=== PATIENT | male | born 1960 | race Caucasian/White ===

== ENCOUNTER 2022-03-11 08:57 | Inpatient (IN) | payer SELFPAY ==
[2022-03-11 09:27] LABS: Actual Bicarbonate (HCO3v) 19 mEq/L (22-28); Base Excess -3.8 mEq/L (-2.0 to +3.0); Calcium, Ionized (venous) 1.24 mmol/L (1.16-1.32); Chloride (VBG) 100 mmol/L (98-106); Hemoglobin (Hb) 15.1 g/dL (13.1-17.2); Potassium (VBG) 4.03 mmol/L (3.70-5.30); Puncture Site Other Site; RapidComm Collect By LAB; Sodium 133.1 mmol/L (133-146); pH (venous) 7.43 (7.32-7.43)
[2022-03-11 09:33] LABS: %Basophils 0.2 % (0.0-2.0); %Eosinophils 0.2 % (0.0-6.0); %Lymphocytes 6.1 % (18.0-47.0); %Neutrophils 85.3 % (40.0-75.0); Hemoglobin 14.8 g/dL (13.5-17.5); Mean Corpuscular Hemoglobin 31.1 pg (27.0-33.0); Mean Corpuscular Volume 88.9 fl (81.2-95.1); Platelet Count 125 10x3/uL (150-450); RBC Distribution Width 18.9 % (11.5-14.5); Red Blood Cell (RBC) Count 4.76 10x6/uL (4.32-5.72); White Blood Cell (WBC) Count 12.9 10x3/uL (3.5-10.5)
[2022-03-11 09:51] LABS: ALT (SGPT) 10 U/L (8-55); AST (SGOT) 9 U/L (5-34); Albumin 4.1 g/dL (3.4-4.8); Alkaline Phosphatase 80 U/L (40-110); Anion Gap 15 mmol/L (10-20); BUN (Urea Nitrogen) 26 mg/dL (8.4-25.7); Bilirubin, Total 1.3 mg/dL (0.2-1.2); Calc. Creatinine Clearance 0 mL/min (70-130); Calcium 9.9 mg/dL (7.8-10.44); Carbon Dioxide 22 mmol/L (23-31); Chloride 100 mmol/L (98-107); Globulin 2.8 g/dL (2.4-3.5); Glucose 120 mg/dL (80-115); Potassium 4.1 mmol/L (3.5-5.1); Protein, Total 6.9 g/dL (5.8-8.1); Sodium 133 mmol/L (136-145)
[2022-03-11 10:43] LABS: Bilirubin Neg (Negative); Blood, Urine Negative (Negative); Clarity Clear (Clear); Glucose, Urine (Dipstick) >=1000 mg/dL (Negative); Ketone, Urine 15 mg/dL (Negative); Leukocyte Negative (Negative); Nitrite Negative (Negative); Protein, Urine (Dipstick) Negative (Neg-Trace); Urobilinogen Normal mg/dL (Less than 2)
[2022-03-11] MEDS ORDERED: Acetaminophen 325 MG TAB PO PRN (12:25)
[2022-03-11] MEDS: Sodium Chloride 0.9% 1,000 ML IV SCH ×2 (15:00→21:45)
[2022-03-11] MEDS ORDERED: Dextrose 50% Abboject 50 ML SYRINGE SLOW IVP PRN (15:04)
[2022-03-11] MEDS ORDERED: Dextrose 5% in Water 1,000 ML IV PRN (15:04)
[2022-03-11] MEDS: Atorvastatin Calcium 40 MG TAB PO SCH (20:59)
[2022-03-11] MEDS ORDERED: Famotidine 20 MG TAB PO SCH (21:00)
[2022-03-12] MEDS ORDERED: Furosemide 40 MG/4 ML VIAL SLOW IVP SCH (00:45)
[2022-03-12] MEDS ORDERED: Piperacillin/Tazobactam 3.375 GM in Sodium Chloride 0.9% 100 ML IVPB SCH ×2 (02:15→10:00)
[2022-03-12 03:15] LABS: Hemoglobin 15.5 g/dL (13.5-17.5); Mean Corpuscular HGB CONC 34.5 g/dL (32.0-36.0); Mean Corpuscular Hemoglobin 30.9 pg (27.0-33.0); Mean Corpuscular Volume 89.6 fl (81.2-95.1); Mean Platelet Volume 10.8 fl (7.4-10.4); RBC Distribution Width 19.2 % (11.5-14.5); Red Blood Cell (RBC) Count 5.01 10x6/uL (4.32-5.72)
[2022-03-12 03:16] LABS: Platelet Count 122 10x3/uL (150-450)
[2022-03-12 03:28] LABS: Anion Gap 22 mmol/L (10-20); BUN (Urea Nitrogen) 22 mg/dL (8.4-25.7); Calc. Creatinine Clearance 100 mL/min (70-130); Calcium 8.8 mg/dL (7.8-10.44); Carbon Dioxide 16 mmol/L (23-31); Chloride 103 mmol/L (98-107); Glucose 159 mg/dL (80-115); Potassium 3.5 mmol/L (3.5-5.1); Sodium 137 mmol/L (136-145)
[2022-03-12 03:35] LABS: MDiff Complete? YES
[2022-03-12 03:47] LABS: Band 46 % (5-11); Lymphocytes 3 % (21-51); Metamyelocyte 2 % (0-0); Monocytes 2 % (0-10); Neutrophil 45 % (42-75); Reactive Lymphocytes 2 % (0-10)
[2022-03-12 03:48] LABS: Platelet Morphology Comment Appears Decreased; RBC Morphology Normal; Reflex for Review?? YES
[2022-03-12] MEDS ORDERED: Vancomycin 1.5 GRAM/300 ML BAG 1.5 GM in Premix Bag 1 BAG IVPB SCH (06:15)
[2022-03-12] MEDS ORDERED: Dextrose 5 % And 0.9 % NaCl 1,000 ML IV SCH (06:15)
[2022-03-12] MEDS ORDERED: Norepinephrine 8 MG/0.9% NS 250 ML ONE (06:58)
[2022-03-12 07:56] LABS: SARS-CoV-2 NAA Rapid Test Not Detected (NotDetected)
[2022-03-12 07:56] LABS: Actual Bicarbonate (HCO3a) 18.4 mEq/L (22-28); CO2 Tension 41.1 mmHg (35.0-45.0); Carboxyhemoglobin (COHb) 0.6 gm% (0.0-3.0); Hemoglobin (Hb) 14.8 g/dL (14.0-18.0); O2 Tension (PaO2), arterial 76.5 mmHg (> 80.0); Puncture Site LRA; pH, Arterial 7.27 (7.35-7.45)
[2022-03-12 07:59] LABS: ALV-art Gradient 585.125 mmHg (0-20)
[2022-03-12] MEDS ORDERED: Norepinephrine 8 MG/0.9% NS 250 ML IVPB SCH (08:30)
[2022-03-12] MEDS ORDERED: Sodium Chloride 0.9% 1,000 ML IV SCH (08:30)
[2022-03-12 09:15] LABS: #Basophils 0.1 10x3/uL (0.0-0.2); #Monocytes 1.1 10x3/uL (0.0-1.1); #Neutrophils 14.2 10x3/uL (1.5-8.4); %Basophils 0.4 % (0.0-2.0); %Eosinophils 0.2 % (0.0-6.0); %Lymphocytes 2.2 % (18.0-47.0); %Monocytes 6.7 % (0.0-10.0); %Neutrophils 90.1 % (40.0-75.0); Hemoglobin 14.6 g/dL (13.5-17.5); Mean Corpuscular HGB CONC 33.7 g/dL (32.0-36.0); Mean Corpuscular Hemoglobin 31.2 pg (27.0-33.0); Mean Corpuscular Volume 92.5 fl (81.2-95.1); Mean Platelet Volume 10.5 fl (7.4-10.4); Platelet Count 129 10x3/uL (150-450); Red Blood Cell (RBC) Count 4.68 10x6/uL (4.32-5.72); White Blood Cell (WBC) Count 15.8 10x3/uL (3.5-10.5)
[2022-03-12 09:35] LABS: ALT (SGPT) Less than 6 U/L (8-55); AST (SGOT) 9 U/L (5-34); Albumin 3.3 g/dL (3.4-4.8); Alkaline Phosphatase 64 U/L (40-110); Anion Gap 20 mmol/L (10-20); BUN (Urea Nitrogen) 27 mg/dL (8.4-25.7); Bilirubin, Total 1.1 mg/dL (0.2-1.2); CRP (Inflammatory) 13.64 mg/dL (= or < 0.5); Calc. Creatinine Clearance 70 mL/min (70-130); Calcium 8.6 mg/dL (7.8-10.44); Carbon Dioxide 18 mmol/L (23-31); Chloride 102 mmol/L (98-107); Estimated GFR 60; Globulin 2.8 g/dL (2.4-3.5); Glucose 222 mg/dL (80-115); Potassium 3.9 mmol/L (3.5-5.1); Protein, Total 6.1 g/dL (5.8-8.1); Sodium 136 mmol/L (136-145)
[2022-03-12] MEDS: Famotidine/PF 20 mg/2ml Vial SLOW IVP SCH ×2 (09:52→20:39)
[2022-03-12] MEDS: Aspirin 81 mg Enteric Coated Tablet PO SCH (09:53)
[2022-03-12] MEDS: HumaLOG 300 UNITS/3 ML VIAL SC PRN ×2 (09:53→12:15)
[2022-03-12] MEDS: Piperacillin/Tazobactam 3.375 GM in Sodium Chloride 0.9% 100 ML IVPB SCH ×2 (11:21→20:38)
[2022-03-12] MEDS: Sodium Chloride 0.9% 1,000 ML IV SCH ×2 (12:00→18:09)
[2022-03-12 12:18] LABS: Lactic Acid 2.1 mmol/L (0.5-2.2)
[2022-03-12] MEDS: Vancomycin HCl 1 GM in Sodium Chloride 0.9% 250 ML 250 ML IVPB SCH (17:04)
[2022-03-12] MEDS: Atorvastatin Calcium 40 MG TAB PO SCH (20:21)
[2022-03-13] MEDS: Sodium Chloride 0.9% 1,000 ML IV SCH ×2 (01:11→07:52)
[2022-03-13] MEDS: Piperacillin/Tazobactam 3.375 GM in Sodium Chloride 0.9% 100 ML IVPB SCH ×3 (04:56→20:13)
[2022-03-13 05:23] LABS: Hemoglobin 12.3 g/dL (13.5-17.5); Mean Corpuscular HGB CONC 34.3 g/dL (32.0-36.0); Mean Corpuscular Hemoglobin 31.5 pg (27.0-33.0); Mean Corpuscular Volume 91.8 fl (81.2-95.1); Mean Platelet Volume 10.8 fl (7.4-10.4); Platelet Count 80 10x3/uL (150-450); RBC Distribution Width 19.1 % (11.5-14.5); Red Blood Cell (RBC) Count 3.91 10x6/uL (4.32-5.72); White Blood Cell (WBC) Count 9.9 10x3/uL (3.5-10.5)
[2022-03-13 05:26] LABS: Anion Gap 15 mmol/L (10-20); BUN (Urea Nitrogen) 16 mg/dL (8.4-25.7); Calc. Creatinine Clearance 135 mL/min (70-130); Calcium 8.7 mg/dL (7.8-10.44); Carbon Dioxide 20 mmol/L (23-31); Chloride 110 mmol/L (98-107); Estimated GFR 105; Glucose 77 mg/dL (80-115); Potassium 3.8 mmol/L (3.5-5.1); Sodium 141 mmol/L (136-145)
[2022-03-13 05:38] LABS: MDiff Complete? YES
[2022-03-13 05:41] LABS: Band 55 % (5-11); Lymphocytes 2 % (21-51); Metamyelocyte 1 % (0-0); Monocytes 3 % (0-10); Neutrophil 39 % (42-75)
[2022-03-13 05:42] LABS: Platelet Morphology Comment Appears Decreased
[2022-03-13 05:44] LABS: RBC Morphology Normal
[2022-03-13] MEDS: Vancomycin HCl 1 GM in Sodium Chloride 0.9% 250 ML 250 ML IVPB SCH ×2 (06:14→17:16)
[2022-03-13] MEDS: Famotidine/PF 20 mg/2ml Vial SLOW IVP SCH ×2 (08:21→20:13)
[2022-03-13] MEDS: Aspirin 81 mg Enteric Coated Tablet PO SCH (08:21)
[2022-03-13] MEDS: Dextrose 5 %-0.45 % NaCl 1,000 ML IV SCH (10:56)
[2022-03-13 18:00] LABS: Vancomycin, Trough 17.2 ug/mL
[2022-03-13] MEDS: Atorvastatin Calcium 40 MG TAB PO SCH (20:13)
[2022-03-14] MEDS: Dextrose 5 %-0.45 % NaCl 1,000 ML IV SCH ×3 (01:25→23:11)
[2022-03-14] MEDS: Piperacillin/Tazobactam 3.375 GM in Sodium Chloride 0.9% 100 ML IVPB SCH ×3 (04:53→20:14)
[2022-03-14 05:29] LABS: Hemoglobin 11.3 g/dL (13.5-17.5); Mean Corpuscular HGB CONC 33.8 g/dL (32.0-36.0); Mean Corpuscular Hemoglobin 30.9 pg (27.0-33.0); Mean Corpuscular Volume 91.3 fl (81.2-95.1); Mean Platelet Volume 10.5 fl (7.4-10.4); Platelet Count 91 10x3/uL (150-450); RBC Distribution Width 19.2 % (11.5-14.5); Red Blood Cell (RBC) Count 3.66 10x6/uL (4.32-5.72); White Blood Cell (WBC) Count 9.9 10x3/uL (3.5-10.5)
[2022-03-14 05:39] LABS: MDiff Complete? YES
[2022-03-14 05:41] LABS: Vancomycin, Trough 9.3 ug/mL
[2022-03-14 05:43] LABS: Anion Gap 13 mmol/L (10-20); BUN (Urea Nitrogen) 12 mg/dL (8.4-25.7); Band 34 % (5-11); Calc. Creatinine Clearance 131 mL/min (70-130); Calcium 8.7 mg/dL (7.8-10.44); Carbon Dioxide 21 mmol/L (23-31); Chloride 110 mmol/L (98-107); Eosinophils 2 % (0-10); Estimated GFR 106; Glucose 94 mg/dL (80-115); Lymphocytes 9 % (21-51); Monocytes 3 % (0-10); Neutrophil 51 % (42-75); Potassium 3.3 mmol/L (3.5-5.1); Reactive Lymphocytes 1 % (0-10); Sodium 141 mmol/L (136-145)
[2022-03-14 05:44] LABS: Platelet Morphology Comment Appears Decreased
[2022-03-14 05:45] LABS: RBC Morphology Normal
[2022-03-14] MEDS: VANCOMYCIN 1.25 GM/250 ML BAG 1.25 GM in Premix Bag 1 BAG IVPB SCH ×2 (06:00→18:36)
[2022-03-14] MEDS: Aspirin 81 mg Enteric Coated Tablet PO SCH (08:34)
[2022-03-14] MEDS: Famotidine/PF 20 mg/2ml Vial SLOW IVP SCH ×2 (09:21→20:15)
[2022-03-14] MEDS: Atorvastatin Calcium 40 MG TAB PO SCH (19:27)
[2022-03-15] MEDS: Piperacillin/Tazobactam 3.375 GM in Sodium Chloride 0.9% 100 ML IVPB SCH ×3 (04:06→20:34)
[2022-03-15 04:46] LABS: Anion Gap 12 mmol/L (10-20); BUN (Urea Nitrogen) 7 mg/dL (8.4-25.7); Calc. Creatinine Clearance 137 mL/min (70-130); Calcium 8.5 mg/dL (7.8-10.44); Carbon Dioxide 23 mmol/L (23-31); Chloride 109 mmol/L (98-107); Estimated GFR 108; Glucose 93 mg/dL (80-115); Potassium 3.1 mmol/L (3.5-5.1); Sodium 141 mmol/L (136-145)
[2022-03-15] MEDS: VANCOMYCIN 1.25 GM/250 ML BAG 1.25 GM in Premix Bag 1 BAG IVPB SCH ×2 (05:51→18:15)
[2022-03-15 05:59] LABS: Hemoglobin 11.4 g/dL (13.5-17.5); Mean Corpuscular HGB CONC 33.7 g/dL (32.0-36.0); Mean Corpuscular Hemoglobin 30.7 pg (27.0-33.0); Mean Corpuscular Volume 91.1 fl (81.2-95.1); Mean Platelet Volume 10.9 fl (7.4-10.4); RBC Distribution Width 19.2 % (11.5-14.5); Red Blood Cell (RBC) Count 3.71 10x6/uL (4.32-5.72); White Blood Cell (WBC) Count 9.2 10x3/uL (3.5-10.5)
[2022-03-15 06:03] LABS: MDiff Complete? YES; Platelet Count 92 10x3/uL (150-450)
[2022-03-15 06:12] LABS: Platelet Morphology Comment Appears Decreased; RBC Morphology Normal
[2022-03-15 06:15] LABS: Eosinophils 2 % (0-10); Lymphocytes 13 % (21-51); Monocytes 8 % (0-10); Neutrophil 77 % (42-75)
[2022-03-15] MEDS: Famotidine/PF 20 mg/2ml Vial SLOW IVP SCH ×2 (08:08→20:34)
[2022-03-15] MEDS: Potassium Chloride 20 MEQ in Premix Bag 1 BAG IVPB SCH ×2 (08:08→09:54)
[2022-03-15] MEDS: Aspirin 81 mg Enteric Coated Tablet PO SCH (08:09)
[2022-03-15] MEDS: Dextrose 5 %-0.45 % NaCl 1,000 ML IV SCH (11:48)
[2022-03-15 18:02] LABS: Vancomycin, Trough 11.2 ug/mL
[2022-03-15] MEDS: hydrALAZINE 20 MG/ML VIAL SLOW IVP PRN (18:23)
[2022-03-15] MEDS: Atorvastatin Calcium 40 MG TAB PO SCH (20:34)
[2022-03-16] MEDS ORDERED: Vancomycin 1.5 GRAM/300 ML BAG ONE (04:19)
[2022-03-16] MEDS: Piperacillin/Tazobactam 3.375 GM in Sodium Chloride 0.9% 100 ML IVPB SCH ×3 (04:21→21:00)
[2022-03-16] MEDS: Dextrose 5 %-0.45 % NaCl 1,000 ML IV SCH (04:22)
[2022-03-16 05:30] LABS: Hemoglobin 12.9 g/dL (13.5-17.5); Mean Corpuscular HGB CONC 33.2 g/dL (32.0-36.0); Mean Corpuscular Hemoglobin 30.3 pg (27.0-33.0); Mean Corpuscular Volume 91.3 fl (81.2-95.1); Mean Platelet Volume 10.3 fl (7.4-10.4); Platelet Count 96 10x3/uL (150-450); RBC Distribution Width 19.4 % (11.5-14.5); Red Blood Cell (RBC) Count 4.26 10x6/uL (4.32-5.72); White Blood Cell (WBC) Count 8.4 10x3/uL (3.5-10.5)
[2022-03-16] MEDS: hydrALAZINE 20 MG/ML VIAL SLOW IVP PRN ×2 (05:34→17:36)
[2022-03-16] MEDS: Vancomycin 1.5 GRAM/300 ML BAG 1.5 GM in Premix Bag 1 BAG IVPB SCH ×2 (05:36→17:35)
[2022-03-16 05:38] LABS: Anion Gap 16 mmol/L (10-20); BUN (Urea Nitrogen) 6 mg/dL (8.4-25.7); Calc. Creatinine Clearance 151 mL/min (70-130); Calcium 8.7 mg/dL (7.8-10.44); Carbon Dioxide 20 mmol/L (23-31); Chloride 109 mmol/L (98-107); Estimated GFR 111; Glucose 73 mg/dL (80-115); Potassium 3.2 mmol/L (3.5-5.1); Sodium 142 mmol/L (136-145)
[2022-03-16 05:42] LABS: MDiff Complete? YES
[2022-03-16 06:06] LABS: Band 14 % (5-11); Eosinophils 2 % (0-10); Lymphocytes 12 % (21-51); Monocytes 10 % (0-10); Neutrophil 61 % (42-75)
[2022-03-16 06:08] LABS: Platelet Morphology Comment Appears Decreased; RBC Morphology Normal
[2022-03-16] MEDS: Famotidine/PF 20 mg/2ml Vial SLOW IVP SCH (08:53)
[2022-03-16] MEDS: Aspirin 81 mg Enteric Coated Tablet PO SCH ×2 (08:53→09:27)
[2022-03-16] MEDS: Lisinopril 10 MG TAB PO SCH (08:56)
[2022-03-16] MEDS ORDERED: Aspirin Chewable 81 MG TAB PO SCH (09:30)
[2022-03-16] MEDS ORDERED: Potassium Bicarbonate/Cit Ac 20 MEQ TAB PO SCH (16:00)
[2022-03-16] MEDS ORDERED: Potassium Chloride 20 MEQ TAB PO SCH (16:00)
[2022-03-16] MEDS: Atorvastatin Calcium 40 MG TAB PO SCH (21:45)
[2022-03-17] MEDS: Piperacillin/Tazobactam 3.375 GM in Sodium Chloride 0.9% 100 ML IVPB SCH ×3 (04:14→20:28)
[2022-03-17 05:27] LABS: #Basophils 0.1 10x3/uL (0.0-0.2); #Eosinphils 0.1 10x3/uL (0.0-0.5); #Monocytes 1.1 10x3/uL (0.0-1.1); #Neutrophils 8.5 10x3/uL (1.5-8.4); %Basophils 0.7 % (0.0-2.0); %Eosinophils 1.3 % (0.0-6.0); %Lymphocytes 9.2 % (18.0-47.0); %Monocytes 9.8 % (0.0-10.0); Hemoglobin 12.4 g/dL (13.5-17.5); Mean Corpuscular HGB CONC 33.7 g/dL (32.0-36.0); Mean Corpuscular Hemoglobin 30.7 pg (27.0-33.0); Mean Corpuscular Volume 91.1 fl (81.2-95.1); Mean Platelet Volume 10.8 fl (7.4-10.4); Platelet Count 113 10x3/uL (150-450); RBC Distribution Width 19.1 % (11.5-14.5); Red Blood Cell (RBC) Count 4.04 10x6/uL (4.32-5.72); White Blood Cell (WBC) Count 11.1 10x3/uL (3.5-10.5)
[2022-03-17 05:33] LABS: ALT (SGPT) 9 U/L (8-55); AST (SGOT) 13 U/L (5-34); Albumin 2.8 g/dL (3.4-4.8); Alkaline Phosphatase 55 U/L (40-110); Anion Gap 16 mmol/L (10-20); BUN (Urea Nitrogen) 6 mg/dL (8.4-25.7); Bilirubin, Direct 0.4 mg/dL (0.1-0.3); Bilirubin, Total 0.9 mg/dL (0.2-1.2); Calc. Creatinine Clearance 146 mL/min (70-130); Calcium 8.6 mg/dL (7.8-10.44); Carbon Dioxide 20 mmol/L (23-31); Cardiac Risk 6.4 (Less than 4.5); Chloride 109 mmol/L (98-107); Cholesterol 116 mg/dl (< 200 Desired); Estimated GFR 110; Glucose 85 mg/dL (80-115); HDL Cholesterol 18 mg/dL (>60 Neg Risk); LDL Cholesterol, Calculated 73 mg/dL; Magnesium 1.8 mg/dL (1.6-2.6); Potassium 3.1 mmol/L (3.5-5.1); Protein, Total 5.6 g/dL (5.8-8.1); Sodium 142 mmol/L (136-145); Triglycerides 125 mg/dL (Less than 150)
[2022-03-17] MEDS ORDERED: Vancomycin 1.5 GRAM/300 ML BAG ONE (05:59)
[2022-03-17] MEDS: Dextrose 5 %-0.45 % NaCl 1,000 ML IV SCH (06:10)
[2022-03-17] MEDS: hydrALAZINE 20 MG/ML VIAL SLOW IVP PRN (06:11)
[2022-03-17] MEDS: Vancomycin 1.5 GRAM/300 ML BAG 1.5 GM in Premix Bag 1 BAG IVPB SCH ×2 (06:12→18:05)
[2022-03-17] MEDS: Enoxaparin Sodium 40 MG/0.4 ML SYRINGE SC SCH (09:56)
[2022-03-17] MEDS: Aspirin Chewable 81 MG TAB PO SCH (09:57)
[2022-03-17] MEDS: Lisinopril 10 MG TAB PO SCH (09:57)
[2022-03-17] MEDS: Potassium Chloride 20 MEQ TAB PO SCH ×2 (09:57→18:05)
[2022-03-17 12:20] LABS: Hemoglobin A1c 5.3 % (4.0-6.0)
[2022-03-17 17:49] LABS: Vancomycin, Trough 12.6 ug/mL
[2022-03-17] MEDS ORDERED: Vancomycin HCl 1 GM in Sodium Chloride 0.9% 250 ML 250 ML IVPB SCH (18:00)
[2022-03-17] MEDS: Atorvastatin Calcium 40 MG TAB PO SCH (20:27)
[2022-03-18] MEDS: hydrALAZINE 20 MG/ML VIAL SLOW IVP PRN ×2 (01:06→23:48)
[2022-03-18] MEDS: Dextrose 5 %-0.45 % NaCl 1,000 ML IV SCH ×2 (01:14→15:50)
[2022-03-18 04:22] LABS: #Basophils 0.1 10x3/uL (0.0-0.2); #Eosinphils 0.2 10x3/uL (0.0-0.5); #Monocytes 1.1 10x3/uL (0.0-1.1); #Neutrophils 6.7 10x3/uL (1.5-8.4); %Basophils 0.8 % (0.0-2.0); %Eosinophils 1.7 % (0.0-6.0); %Lymphocytes 13.7 % (18.0-47.0); %Monocytes 11.2 % (0.0-10.0); %Neutrophils 69.1 % (40.0-75.0); Hemoglobin 12.1 g/dL (13.5-17.5); Mean Corpuscular Hemoglobin 30.6 pg (27.0-33.0); Mean Corpuscular Volume 92.9 fl (81.2-95.1); Mean Platelet Volume 10.4 fl (7.4-10.4); Platelet Count 147 10x3/uL (150-450); RBC Distribution Width 19.4 % (11.5-14.5); Red Blood Cell (RBC) Count 3.95 10x6/uL (4.32-5.72); White Blood Cell (WBC) Count 9.7 10x3/uL (3.5-10.5)
[2022-03-18] MEDS: Piperacillin/Tazobactam 3.375 GM in Sodium Chloride 0.9% 100 ML IVPB SCH ×3 (04:28→21:05)
[2022-03-18 04:47] LABS: Anion Gap 14 mmol/L (10-20); BUN (Urea Nitrogen) 8 mg/dL (8.4-25.7); Calc. Creatinine Clearance 144 mL/min (70-130); Calcium 8.6 mg/dL (7.8-10.44); Carbon Dioxide 23 mmol/L (23-31); Chloride 110 mmol/L (98-107); Estimated GFR 109; Glucose 96 mg/dL (80-115); Magnesium 1.9 mg/dL (1.6-2.6); Potassium 3.5 mmol/L (3.5-5.1); Sodium 143 mmol/L (136-145)
[2022-03-18] MEDS ORDERED: Potassium Chloride 20 MEQ TAB PO SCH (08:00)
[2022-03-18] MEDS: Vancomycin 1.5 GRAM/300 ML BAG 1.5 GM in Premix Bag 1 BAG IVPB SCH ×2 (08:34→17:20)
[2022-03-18] MEDS: Lisinopril 10 MG TAB PO SCH (08:35)
[2022-03-18] MEDS: Enoxaparin Sodium 40 MG/0.4 ML SYRINGE SC SCH (08:35)
[2022-03-18] MEDS: Aspirin Chewable 81 MG TAB PO SCH (08:35)
[2022-03-18] MEDS: Atorvastatin Calcium 40 MG TAB PO SCH (21:09)
[2022-03-19 03:26] LABS: #Basophils 0.1 10x3/uL (0.0-0.2); #Eosinphils 0.2 10x3/uL (0.0-0.5); #Monocytes 0.8 10x3/uL (0.0-1.1); #Neutrophils 5.8 10x3/uL (1.5-8.4); %Basophils 0.8 % (0.0-2.0); %Eosinophils 2.4 % (0.0-6.0); %Lymphocytes 16.1 % (18.0-47.0); %Monocytes 9.8 % (0.0-10.0); %Neutrophils 67.6 % (40.0-75.0); Hemoglobin 12.5 g/dL (13.5-17.5); Mean Corpuscular HGB CONC 33.3 g/dL (32.0-36.0); Mean Corpuscular Hemoglobin 30.6 pg (27.0-33.0); Mean Corpuscular Volume 91.7 fl (81.2-95.1); Mean Platelet Volume 9.8 fl (7.4-10.4); Platelet Count 164 10x3/uL (150-450); RBC Distribution Width 19.3 % (11.5-14.5); Red Blood Cell (RBC) Count 4.09 10x6/uL (4.32-5.72); White Blood Cell (WBC) Count 8.5 10x3/uL (3.5-10.5)
[2022-03-19] MEDS: Piperacillin/Tazobactam 3.375 GM in Sodium Chloride 0.9% 100 ML IVPB SCH ×2 (04:15→14:40)
[2022-03-19] MEDS ORDERED: Piperacillin/Tazobactam 3.375 GM VIAL ONE (04:16)
[2022-03-19 04:17] LABS: Anion Gap 15 mmol/L (10-20); BUN (Urea Nitrogen) 7 mg/dL (8.4-25.7); Calc. Creatinine Clearance 149 mL/min (70-130); Calcium 8.9 mg/dL (7.8-10.44); Carbon Dioxide 23 mmol/L (23-31); Chloride 107 mmol/L (98-107); Estimated GFR 110; Glucose 110 mg/dL (80-115); Magnesium 1.7 mg/dL (1.6-2.6); Potassium 3.5 mmol/L (3.5-5.1); Sodium 141 mmol/L (136-145)
[2022-03-19] MEDS: Vancomycin 1.5 GRAM/300 ML BAG 1.5 GM in Premix Bag 1 BAG IVPB SCH (05:34)
[2022-03-19] MEDS: Dextrose 5 %-0.45 % NaCl 1,000 ML IV SCH (05:34)
[2022-03-19 05:49] LABS: Vancomycin, Trough 13.4 ug/mL
[2022-03-19] MEDS ORDERED: Magnesium 2 GM/50 ML(in water) 4 GM in Premix Bag 1 BAG IVPB SCH ×3 (06:30→16:00)
[2022-03-19] MEDS ORDERED: Potassium Chloride 20 MEQ TAB PO SCH (06:30)
[2022-03-19] MEDS ORDERED: Iopamidol 370 76% 100 ML VIAL ONE (08:00)
[2022-03-19] MEDS: Lisinopril 10 MG TAB PO SCH (09:28)
[2022-03-19] MEDS: Amlodipine 5 MG TAB PO SCH (09:29)
[2022-03-19] MEDS: Enoxaparin Sodium 40 MG/0.4 ML SYRINGE SC SCH (09:29)
[2022-03-19] MEDS: Aspirin Chewable 81 MG TAB PO SCH (09:29)
[2022-03-19] MEDS ORDERED: Furosemide 40 MG/4 ML VIAL SLOW IVP SCH (17:30)
[2022-03-19] MEDS ORDERED: Enoxaparin Sodium 80 MG/0.8 ML SYRINGE SC SCH (18:00)
[2022-03-19] MEDS: Enoxaparin Sodium 80 MG/0.8 ML SYRINGE SC SCH (18:02)
[2022-03-19] MEDS: Atorvastatin Calcium 40 MG TAB PO SCH (21:46)
[2022-03-19] MEDS ORDERED: Famotidine/PF 20 mg/2ml Vial SLOW IVP SCH (23:00)
[2022-03-20 04:41] LABS: #Basophils 0.1 10x3/uL (0.0-0.2); #Eosinphils 0.2 10x3/uL (0.0-0.5); #Monocytes 0.6 10x3/uL (0.0-1.1); %Eosinophils 1.8 % (0.0-6.0); %Lymphocytes 14.2 % (18.0-47.0); %Monocytes 7.9 % (0.0-10.0); %Neutrophils 73.1 % (40.0-75.0); Hemoglobin 12.7 g/dL (13.5-17.5); Mean Corpuscular HGB CONC 32.6 g/dL (32.0-36.0); Mean Corpuscular Hemoglobin 30.6 pg (27.0-33.0); Mean Corpuscular Volume 93.7 fl (81.2-95.1); Mean Platelet Volume 10.1 fl (7.4-10.4); Platelet Count 194 10x3/uL (150-450); Red Blood Cell (RBC) Count 4.15 10x6/uL (4.32-5.72); White Blood Cell (WBC) Count 8.2 10x3/uL (3.5-10.5)
[2022-03-20 04:47] LABS: PTT 29.1 sec (22.0-33.0); Prothrombin Time 10.5 sec (9.5-12.1)
[2022-03-20 04:52] LABS: Anion Gap 13 mmol/L (10-20); BUN (Urea Nitrogen) 7 mg/dL (8.4-25.7); Calc. Creatinine Clearance 149 mL/min (70-130); Calcium 8.6 mg/dL (7.8-10.44); Carbon Dioxide 29 mmol/L (23-31); Chloride 105 mmol/L (98-107); Estimated GFR 110; Glucose 114 mg/dL (80-115); Magnesium 2.1 mg/dL (1.6-2.6); Potassium 3.3 mmol/L (3.5-5.1); Sodium 144 mmol/L (136-145)
[2022-03-20] MEDS ORDERED: Furosemide 40 MG/4 ML VIAL SLOW IVP SCH ×2 (07:00→14:00)
[2022-03-20] MEDS: Potassium Chloride 20 MEQ TAB PO SCH ×2 (08:18→17:29)
[2022-03-20] MEDS: Aspirin Chewable 81 MG TAB PO SCH (08:18)
[2022-03-20] MEDS: Lisinopril 10 MG TAB PO SCH (08:18)
[2022-03-20] MEDS: Enoxaparin Sodium 80 MG/0.8 ML SYRINGE SC SCH ×2 (08:18→21:20)
[2022-03-20] MEDS: Amlodipine 5 MG TAB PO SCH (08:18)
[2022-03-20] MEDS: Pantoprazole 40 MG VIAL IVP SCH (08:19)
[2022-03-20] MEDS ORDERED: Tamsulosin HCl 0.4 MG CAP PO SCH (13:00)
[2022-03-20] MEDS: HumaLOG 300 UNITS/3 ML VIAL SC PRN ×2 (13:42→17:29)
[2022-03-20] MEDS: Atorvastatin Calcium 40 MG TAB PO SCH (21:19)
[2022-03-20] MEDS: Polyethylene Glycol 3350 17 GM Packet PO SCH (21:19)
[2022-03-20] MEDS: Senokot S 8.6-50 MG TAB PO SCH (21:19)
[2022-03-21 04:22] LABS: #Basophils 0.1 10x3/uL (0.0-0.2); #Eosinphils 0.1 10x3/uL (0.0-0.5); #Monocytes 0.6 10x3/uL (0.0-1.1); #Neutrophils 5.2 10x3/uL (1.5-8.4); %Basophils 0.7 % (0.0-2.0); %Eosinophils 1.8 % (0.0-6.0); %Monocytes 7.3 % (0.0-10.0); %Neutrophils 67.8 % (40.0-75.0); Anion Gap 12 mmol/L (10-20); BUN (Urea Nitrogen) 7 mg/dL (8.4-25.7); Calc. Creatinine Clearance 146 mL/min (70-130); Calcium 8.9 mg/dL (7.8-10.44); Carbon Dioxide 30 mmol/L (23-31); Chloride 103 mmol/L (98-107); Estimated GFR 110; Glucose 120 mg/dL (80-115); Hemoglobin 12.2 g/dL (13.5-17.5); Mean Corpuscular HGB CONC 32.2 g/dL (32.0-36.0); Mean Corpuscular Hemoglobin 30.4 pg (27.0-33.0); Mean Corpuscular Volume 94.5 fl (81.2-95.1); Mean Platelet Volume 10.3 fl (7.4-10.4); Platelet Count 226 10x3/uL (150-450); Potassium 3.4 mmol/L (3.5-5.1); Red Blood Cell (RBC) Count 4.01 10x6/uL (4.32-5.72); Sodium 142 mmol/L (136-145); White Blood Cell (WBC) Count 7.6 10x3/uL (3.5-10.5)
[2022-03-21] MEDS ORDERED: Enoxaparin Sodium 80 MG/0.8 ML SYRINGE ONE (07:55)
[2022-03-21] MEDS: Amlodipine 5 MG TAB PO SCH (08:27)
[2022-03-21] MEDS: Potassium Chloride 20 MEQ TAB PO SCH ×2 (08:27→17:14)
[2022-03-21] MEDS: Tamsulosin HCl 0.4 MG CAP PO SCH (08:27)
[2022-03-21] MEDS: Polyethylene Glycol 3350 17 GM Packet PO SCH ×2 (08:27→20:29)
[2022-03-21] MEDS: Senokot S 8.6-50 MG TAB PO SCH ×2 (08:27→20:29)
[2022-03-21] MEDS: Lisinopril 10 MG TAB PO SCH (08:27)
[2022-03-21] MEDS: Aspirin Chewable 81 MG TAB PO SCH (08:27)
[2022-03-21] MEDS: Pantoprazole 40 MG VIAL IVP SCH (08:27)
[2022-03-21] MEDS: Enoxaparin Sodium 80 MG/0.8 ML SYRINGE SC SCH ×2 (08:27→20:29)
[2022-03-21] MEDS: Warfarin Sodium 2.5 MG TAB PO SCH (17:14)
[2022-03-21] MEDS: Atorvastatin Calcium 40 MG TAB PO SCH (20:28)
[2022-03-21] MEDS ORDERED: Magnesium 2 GM/50 ML(in water) 2 GM in Premix Bag 1 BAG IVPB SCH (21:00)
[2022-03-22 05:02] LABS: ALT (SGPT) 121 U/L (8-55); AST (SGOT) 136 U/L (5-34); Albumin 2.9 g/dL (3.4-4.8); Alkaline Phosphatase 85 U/L (40-110); Anion Gap 13 mmol/L (10-20); BUN (Urea Nitrogen) 9 mg/dL (8.4-25.7); Bilirubin, Direct 0.2 mg/dL (0.1-0.3); Bilirubin, Total 0.4 mg/dL (0.2-1.2); Calc. Creatinine Clearance 146 mL/min (70-130); Calcium 8.8 mg/dL (7.8-10.44); Carbon Dioxide 30 mmol/L (23-31); Chloride 104 mmol/L (98-107); Estimated GFR 109; Glucose 118 mg/dL (80-115); Magnesium 2.2 mg/dL (1.6-2.6); Potassium 4.1 mmol/L (3.5-5.1); Protein, Total 6.1 g/dL (5.8-8.1); Sodium 143 mmol/L (136-145)
[2022-03-22 05:22] LABS: #Basophils 0.1 10x3/uL (0.0-0.2); #Eosinphils 0.1 10x3/uL (0.0-0.5); #Monocytes 0.5 10x3/uL (0.0-1.1); #Neutrophils 5.8 10x3/uL (1.5-8.4); %Basophils 0.8 % (0.0-2.0); %Eosinophils 1.2 % (0.0-6.0); %Lymphocytes 16.2 % (18.0-47.0); Hemoglobin 12.2 g/dL (13.5-17.5); Mean Corpuscular HGB CONC 32.5 g/dL (32.0-36.0); Mean Corpuscular Hemoglobin 30.7 pg (27.0-33.0); Mean Corpuscular Volume 94.2 fl (81.2-95.1); Mean Platelet Volume 10.1 fl (7.4-10.4); Platelet Count 251 10x3/uL (150-450); RBC Distribution Width 18.8 % (11.5-14.5); Red Blood Cell (RBC) Count 3.98 10x6/uL (4.32-5.72); White Blood Cell (WBC) Count 7.7 10x3/uL (3.5-10.5)
[2022-03-22 05:29] LABS: INR-International Normal Ratio 0.9; PTT 30.3 sec (22.0-33.0); Prothrombin Time 10.3 sec (9.5-12.1)
[2022-03-22] MEDS ORDERED: Enoxaparin Sodium 80 MG/0.8 ML SYRINGE ONE (09:51)
[2022-03-22] MEDS: Polyethylene Glycol 3350 17 GM Packet PO SCH ×2 (09:54→21:08)
[2022-03-22] MEDS: Senokot S 8.6-50 MG TAB PO SCH ×2 (09:54→21:08)
[2022-03-22] MEDS: Enoxaparin Sodium 80 MG/0.8 ML SYRINGE SC SCH ×2 (09:54→21:07)
[2022-03-22] MEDS: Tamsulosin HCl 0.4 MG CAP PO SCH (09:54)
[2022-03-22] MEDS: Pantoprazole 40 MG VIAL IVP SCH (09:55)
[2022-03-22] MEDS: Aspirin Chewable 81 MG TAB PO SCH (09:56)
[2022-03-22] MEDS: Amlodipine 5 MG TAB PO SCH (09:57)
[2022-03-22] MEDS: Lisinopril 10 MG TAB PO SCH (09:57)
[2022-03-22] MEDS: Warfarin Sodium 2.5 MG TAB PO SCH (17:32)
[2022-03-22] MEDS: HumaLOG 300 UNITS/3 ML VIAL SC PRN (17:33)
[2022-03-22] MEDS: Atorvastatin Calcium 40 MG TAB PO SCH (21:07)
[2022-03-23 04:43] LABS: ALT (SGPT) 144 U/L (8-55); AST (SGOT) 118 U/L (5-34); Albumin 2.9 g/dL (3.4-4.8); Alkaline Phosphatase 88 U/L (40-110); Anion Gap 13 mmol/L (10-20); BUN (Urea Nitrogen) 10 mg/dL (8.4-25.7); Bilirubin, Total 0.5 mg/dL (0.2-1.2); Calc. Creatinine Clearance 151 mL/min (70-130); Calcium 8.9 mg/dL (7.8-10.44); Carbon Dioxide 29 mmol/L (23-31); Chloride 104 mmol/L (98-107); Estimated GFR 110; Glucose 123 mg/dL (80-115); Magnesium 1.9 mg/dL (1.6-2.6); Potassium 3.9 mmol/L (3.5-5.1); Protein, Total 5.9 g/dL (5.8-8.1); Sodium 142 mmol/L (136-145)
[2022-03-23 04:52] LABS: PTT 30.1 sec (22.0-33.0); Prothrombin Time 10.4 sec (9.5-12.1)
[2022-03-23 04:53] LABS: #Basophils 0.1 10x3/uL (0.0-0.2); #Eosinphils 0.1 10x3/uL (0.0-0.5); #Monocytes 0.5 10x3/uL (0.0-1.1); #Neutrophils 5.8 10x3/uL (1.5-8.4); %Basophils 0.6 % (0.0-2.0); %Eosinophils 0.9 % (0.0-6.0); %Lymphocytes 17.8 % (18.0-47.0); %Monocytes 5.9 % (0.0-10.0); %Neutrophils 74.3 % (40.0-75.0); Hemoglobin 11.6 g/dL (13.5-17.5); Mean Corpuscular Hemoglobin 29.9 pg (27.0-33.0); Mean Corpuscular Volume 93.6 fl (81.2-95.1); Platelet Count 281 10x3/uL (150-450); RBC Distribution Width 18.7 % (11.5-14.5); Red Blood Cell (RBC) Count 3.88 10x6/uL (4.32-5.72); White Blood Cell (WBC) Count 7.8 10x3/uL (3.5-10.5)
[2022-03-23] MEDS ORDERED: Enoxaparin Sodium 80 MG/0.8 ML SYRINGE ONE (09:52)
[2022-03-23] MEDS: Pantoprazole 40 MG VIAL IVP SCH (10:47)
[2022-03-23] MEDS: Lisinopril 10 MG TAB PO SCH (10:50)
[2022-03-23] MEDS: Polyethylene Glycol 3350 17 GM Packet PO SCH ×2 (10:50→20:50)
[2022-03-23] MEDS: Amlodipine 5 MG TAB PO SCH (10:50)
[2022-03-23] MEDS: Aspirin Chewable 81 MG TAB PO SCH (10:50)
[2022-03-23] MEDS: Enoxaparin Sodium 80 MG/0.8 ML SYRINGE SC SCH ×2 (10:50→20:39)
[2022-03-23] MEDS: Senokot S 8.6-50 MG TAB PO SCH ×2 (10:51→20:50)
[2022-03-23] MEDS: Tamsulosin HCl 0.4 MG CAP PO SCH (10:51)
[2022-03-23] MEDS: Ondansetron ODT 4 MG TAB PO PRN (13:35)
[2022-03-23] MEDS: Warfarin Sodium 5 MG TAB PO SCH (16:49)
[2022-03-23] MEDS: HumaLOG 300 UNITS/3 ML VIAL SC PRN ×2 (16:56→20:38)
[2022-03-23] MEDS: Atorvastatin Calcium 40 MG TAB PO SCH (20:40)
[2022-03-24 04:44] LABS: PTT 30.9 sec (22.0-33.0); Prothrombin Time 10.8 sec (9.5-12.1)
[2022-03-24 04:45] LABS: ALT (SGPT) 157 U/L (8-55); AST (SGOT) 113 U/L (5-34); Albumin 2.9 g/dL (3.4-4.8); Alkaline Phosphatase 94 U/L (40-110); Anion Gap 12 mmol/L (10-20); BUN (Urea Nitrogen) 12 mg/dL (8.4-25.7); Bilirubin, Total 0.4 mg/dL (0.2-1.2); Calc. Creatinine Clearance 143 mL/min (70-130); Carbon Dioxide 30 mmol/L (23-31); Chloride 104 mmol/L (98-107); Estimated GFR 108; Globulin 3.4 g/dL (2.4-3.5); Glucose 109 mg/dL (80-115); Potassium 4.2 mmol/L (3.5-5.1); Protein, Total 6.3 g/dL (5.8-8.1); Sodium 142 mmol/L (136-145)
[2022-03-24] MEDS: Amlodipine 5 MG TAB PO SCH (08:54)
[2022-03-24] MEDS: Enoxaparin Sodium 80 MG/0.8 ML SYRINGE SC SCH ×2 (08:54→21:13)
[2022-03-24] MEDS: Senokot S 8.6-50 MG TAB PO SCH ×2 (08:54→21:13)
[2022-03-24] MEDS: Lisinopril 10 MG TAB PO SCH (08:54)
[2022-03-24] MEDS: Aspirin Chewable 81 MG TAB PO SCH (08:54)
[2022-03-24] MEDS: Tamsulosin HCl 0.4 MG CAP PO SCH (08:54)
[2022-03-24] MEDS: Polyethylene Glycol 3350 17 GM Packet PO SCH ×2 (08:55→21:14)
[2022-03-24] MEDS: Pantoprazole 40 MG VIAL IVP SCH (08:55)
[2022-03-24] MEDS: Warfarin Sodium 5 MG TAB PO SCH (16:38)
[2022-03-24] MEDS: HumaLOG 300 UNITS/3 ML VIAL SC PRN (16:39)
[2022-03-24] MEDS: Atorvastatin Calcium 40 MG TAB PO SCH (21:13)
[2022-03-25 04:23] LABS: INR-International Normal Ratio 1.2; PTT 31.3 sec (22.0-33.0); Prothrombin Time 12.4 sec (9.5-12.1)
[2022-03-25 04:31] LABS: ALT (SGPT) 141 U/L (8-55); AST (SGOT) 77 U/L (5-34); Albumin 3.1 g/dL (3.4-4.8); Alkaline Phosphatase 93 U/L (40-110); Anion Gap 11 mmol/L (10-20); BUN (Urea Nitrogen) 11 mg/dL (8.4-25.7); Bilirubin, Total 0.4 mg/dL (0.2-1.2); Calc. Creatinine Clearance 137 mL/min (70-130); Calcium 9.5 mg/dL (7.8-10.44); Carbon Dioxide 31 mmol/L (23-31); Chloride 103 mmol/L (98-107); Estimated GFR 107; Globulin 3.2 g/dL (2.4-3.5); Glucose 132 mg/dL (80-115); Potassium 3.7 mmol/L (3.5-5.1); Protein, Total 6.3 g/dL (5.8-8.1); Sodium 141 mmol/L (136-145)
[2022-03-25] MEDS: Polyethylene Glycol 3350 17 GM Packet PO SCH ×2 (09:53→22:48)
[2022-03-25] MEDS: Senokot S 8.6-50 MG TAB PO SCH ×2 (09:53→22:47)
[2022-03-25] MEDS: Tamsulosin HCl 0.4 MG CAP PO SCH (09:53)
[2022-03-25] MEDS: Amlodipine 5 MG TAB PO SCH (09:53)
[2022-03-25] MEDS: Lisinopril 10 MG TAB PO SCH (09:53)
[2022-03-25] MEDS: Aspirin Chewable 81 MG TAB PO SCH (09:53)
[2022-03-25] MEDS: Pantoprazole 40 MG VIAL IVP SCH (09:54)
[2022-03-25] MEDS: Enoxaparin Sodium 80 MG/0.8 ML SYRINGE SC SCH ×2 (09:54→22:47)
[2022-03-25] MEDS ORDERED: Warfarin Sodium 7.5 MG TAB PO SCH (17:00)
[2022-03-25] MEDS: Atorvastatin Calcium 40 MG TAB PO SCH (22:47)
[2022-03-26 04:05] VITALS: BMI 28.0
[2022-03-26 04:17] LABS: ALT (SGPT) 112 U/L (8-55); AST (SGOT) 61 U/L (5-34); Alkaline Phosphatase 96 U/L (40-110); Anion Gap 11 mmol/L (10-20); BUN (Urea Nitrogen) 11 mg/dL (8.4-25.7); Bilirubin, Total 0.4 mg/dL (0.2-1.2); Calc. Creatinine Clearance 133 mL/min (70-130); Calcium 9.1 mg/dL (7.8-10.44); Carbon Dioxide 32 mmol/L (23-31); Chloride 104 mmol/L (98-107); Estimated GFR 106; Globulin 3.1 g/dL (2.4-3.5); Glucose 119 mg/dL (80-115); Potassium 3.7 mmol/L (3.5-5.1); Protein, Total 6.1 g/dL (5.8-8.1); Sodium 143 mmol/L (136-145)
[2022-03-26 04:20] LABS: INR-International Normal Ratio 1.4; PTT 34.4 sec (22.0-33.0); Prothrombin Time 14.7 sec (9.5-12.1)
[2022-03-26] MEDS: Amlodipine 5 MG TAB PO SCH (09:23)
[2022-03-26] MEDS: Enoxaparin Sodium 80 MG/0.8 ML SYRINGE SC SCH ×2 (09:24→21:49)
[2022-03-26] MEDS: Aspirin Chewable 81 MG TAB PO SCH (09:24)
[2022-03-26] MEDS: Lisinopril 10 MG TAB PO SCH (09:26)
[2022-03-26] MEDS: Pantoprazole 40 MG VIAL IVP SCH (09:26)
[2022-03-26] MEDS: Tamsulosin HCl 0.4 MG CAP PO SCH (09:27)
[2022-03-26] MEDS: Polyethylene Glycol 3350 17 GM Packet PO SCH ×2 (09:27→21:49)
[2022-03-26] MEDS: Senokot S 8.6-50 MG TAB PO SCH ×2 (09:27→21:48)
[2022-03-26] MEDS: HumaLOG 300 UNITS/3 ML VIAL SC PRN (12:29)
[2022-03-26] MEDS: Warfarin Sodium 5 MG TAB PO SCH (17:21)
[2022-03-26] MEDS: Atorvastatin Calcium 40 MG TAB PO SCH (21:48)
[2022-03-27 04:32] LABS: ALT (SGPT) 104 U/L (8-55); AST (SGOT) 56 U/L (5-34); Alkaline Phosphatase 93 U/L (40-110); Anion Gap 10 mmol/L (10-20); BUN (Urea Nitrogen) 9 mg/dL (8.4-25.7); Bilirubin, Total 0.3 mg/dL (0.2-1.2); Calc. Creatinine Clearance 142 mL/min (70-130); Calcium 9.1 mg/dL (7.8-10.44); Carbon Dioxide 33 mmol/L (23-31); Chloride 104 mmol/L (98-107); Estimated GFR 108; Globulin 3.2 g/dL (2.4-3.5); Glucose 117 mg/dL (80-115); Potassium 3.7 mmol/L (3.5-5.1); Protein, Total 6.2 g/dL (5.8-8.1); Sodium 143 mmol/L (136-145)
[2022-03-27 04:35] LABS: PTT 37.1 sec (22.0-33.0); Prothrombin Time 20.5 sec (9.5-12.1)
[2022-03-27] MEDS: hydrALAZINE 20 MG/ML VIAL SLOW IVP PRN (06:05)
[2022-03-27] MEDS ORDERED: Amlodipine 10 MG TAB PO SCH (09:00)
[2022-03-27] MEDS: Senokot S 8.6-50 MG TAB PO SCH ×2 (09:45→20:56)
[2022-03-27] MEDS: Lisinopril 10 MG TAB PO SCH (09:45)
[2022-03-27] MEDS: Polyethylene Glycol 3350 17 GM Packet PO SCH ×2 (09:46→20:57)
[2022-03-27] MEDS: Pantoprazole 40 MG VIAL IVP SCH (09:47)
[2022-03-27] MEDS: Aspirin Chewable 81 MG TAB PO SCH (09:47)
[2022-03-27] MEDS: Enoxaparin Sodium 80 MG/0.8 ML SYRINGE SC SCH (09:47)
[2022-03-27] MEDS: Tamsulosin HCl 0.4 MG CAP PO SCH (09:47)
[2022-03-27] MEDS: Ondansetron ODT 4 MG TAB PO PRN (11:08)
[2022-03-27] MEDS: Warfarin Sodium 5 MG TAB PO SCH (16:52)
[2022-03-27] MEDS ORDERED: Lactated Ringer's 500 ML IV SCH (19:45)
[2022-03-27] MEDS: Atorvastatin Calcium 40 MG TAB PO SCH (20:56)
[2022-03-28 04:23] LABS: INR-International Normal Ratio 2.4; PTT 33.9 sec (22.0-33.0); Prothrombin Time 24.5 sec (9.5-12.1)
[2022-03-28 04:29] LABS: ALT (SGPT) 104 U/L (8-55); AST (SGOT) 57 U/L (5-34); Albumin 3.2 g/dL (3.4-4.8); Alkaline Phosphatase 93 U/L (40-110); Anion Gap 12 mmol/L (10-20); BUN (Urea Nitrogen) 9 mg/dL (8.4-25.7); Bilirubin, Total 0.4 mg/dL (0.2-1.2); Calc. Creatinine Clearance 129 mL/min (70-130); Calcium 9.4 mg/dL (7.8-10.44); Carbon Dioxide 33 mmol/L (23-31); Chloride 103 mmol/L (98-107); Estimated GFR 105; Globulin 3.2 g/dL (2.4-3.5); Glucose 113 mg/dL (80-115); Protein, Total 6.4 g/dL (5.8-8.1); Sodium 144 mmol/L (136-145)
[2022-03-28] MEDS: Polyethylene Glycol 3350 17 GM Packet PO SCH ×2 (08:25→22:57)
[2022-03-28] MEDS: Tamsulosin HCl 0.4 MG CAP PO SCH (08:25)
[2022-03-28] MEDS: Senokot S 8.6-50 MG TAB PO SCH ×2 (08:25→22:56)
[2022-03-28] MEDS: Pantoprazole 40 MG VIAL IVP SCH (08:25)
[2022-03-28] MEDS: Aspirin Chewable 81 MG TAB PO SCH (08:25)
[2022-03-28] MEDS: Warfarin Sodium 5 MG TAB PO SCH (19:45)
[2022-03-28] MEDS: Atorvastatin Calcium 40 MG TAB PO SCH (22:56)
[2022-03-29 04:39] LABS: INR-International Normal Ratio 2.2
[2022-03-29 09:44] LABS: Hemoglobin 12.8 g/dL (13.5-17.5); Mean Corpuscular HGB CONC 32.5 g/dL (32.0-36.0); Mean Corpuscular Hemoglobin 30.5 pg (27.0-33.0); Platelet Count 281 10x3/uL (150-450); RBC Distribution Width 18.1 % (11.5-14.5); Red Blood Cell (RBC) Count 4.19 10x6/uL (4.32-5.72); White Blood Cell (WBC) Count 8.7 10x3/uL (3.5-10.5)
[2022-03-29 09:56] LABS: Anion Gap 11 mmol/L (10-20); BUN (Urea Nitrogen) 12 mg/dL (8.4-25.7); Calc. Creatinine Clearance 137 mL/min (70-130); Calcium 9.2 mg/dL (7.8-10.44); Carbon Dioxide 29 mmol/L (23-31); Chloride 106 mmol/L (98-107); Estimated GFR 107; Glucose 112 mg/dL (80-115); Potassium 3.9 mmol/L (3.5-5.1); Sodium 142 mmol/L (136-145)
[2022-03-29] MEDS ORDERED: Pantoprazole 40 MG VIAL ONE (10:50)
[2022-03-29] MEDS: Tamsulosin HCl 0.4 MG CAP PO SCH (10:57)
[2022-03-29] MEDS: Polyethylene Glycol 3350 17 GM Packet PO SCH ×2 (10:57→21:03)
[2022-03-29] MEDS: Pantoprazole 40 MG VIAL IVP SCH (10:58)
[2022-03-29] MEDS: Senokot S 8.6-50 MG TAB PO SCH ×2 (10:58→21:02)
[2022-03-29] MEDS: Aspirin Chewable 81 MG TAB PO SCH (10:58)
[2022-03-29] MEDS: Warfarin Sodium 5 MG TAB PO SCH (18:27)
[2022-03-29] MEDS: Atorvastatin Calcium 40 MG TAB PO SCH (21:02)
[2022-03-30 05:06] LABS: INR-International Normal Ratio 2.7; Prothrombin Time 27.8 sec (9.5-12.1)
[2022-03-30 13:27] VITALS: TEMP 97.2
[2022-03-30 13:29] VITALS: BP 148/73
== END 2022-03-30 09:30 | disposition home or self-care (01) | DRG 64 ==
LOC: CSHERS 08:57 → CSHTELE 12:58 → OBSVTOIN 12:58 → CSHICU 03-12 06:39 → CSHTELE 03-15 14:23
PROVIDERS: ADMIT Internal Medicine; ATTEND Internal Medicine
PROC: 3E03329 Introduction of Other Anti-infective into Peripheral Vein, Percutaneous Approach (ICD-10-PCS; principal; 2022-03-11)
PROC: 5A09457 Assistance with Respiratory Ventilation, 24-96 Consecutive Hours, Continuous Positive Airway Pressure (ICD-10-PCS; 2022-03-12)
PROC: 0T9B70Z Drainage of Bladder with Drainage Device, Via Natural or Artificial Opening (ICD-10-PCS; 2022-03-20)
DX: I63.232 Cerebral infarction due to unspecified occlusion or stenosis of left carotid arteries (principal); A41.9 Sepsis, unspecified organism; J96.01 Acute respiratory failure with hypoxia; J69.0 Pneumonitis due to inhalation of food and vomit; I26.99 Other pulmonary embolism without acute cor pulmonale; R65.21 Severe sepsis with septic shock; I69.351 Hemiplegia and hemiparesis following cerebral infarction affecting right dominant side; E87.2 Acidosis; C20 Malignant neoplasm of rectum; I10 Essential (primary) hypertension; E78.5 Hyperlipidemia, unspecified; R13.10 Dysphagia, unspecified; D69.6 Thrombocytopenia, unspecified; R33.9 Retention of urine, unspecified; D64.9 Anemia, unspecified; K42.9 Umbilical hernia without obstruction or gangrene; R13.12 Dysphagia, oropharyngeal phase; Z20.822 Contact with and (suspected) exposure to COVID-19; Z79.82 Long term (current) use of aspirin; Z79.899 Other long term (current) drug therapy; Z87.891 Personal history of nicotine dependence; R73.03 Prediabetes
CPT/HCPCS: 36415; 36416; 36600; 70450; 70551; 71045; 71275; 74018; 74230; 80048; 80053; 80061; 80076; 80202; 81003; 82805; 83036; 83605; 83735; 83880; 84484; 85025; 85027; 85060; 85379; 85610; 85730; 86140; 86850; 86900; 86901; 87040; 87070; 87081; 87205; 93005; 93010; 93306; 93970; 94640; 94660; 94667; 94668; 94669; 94760; 96374; C9113; G0378; J0360; J1650; J1815; J1940; J2543; J3370; J3475; J3480; J3490; J7042; J7050; J7620; Q0162; Q9967; S0028; U0003; U0005